=== PATIENT | male | born 1960 | race African-American/Black ===

== ENCOUNTER 2017-01-20 03:10 | Emergency (ER) | payer MEDICAID, OTHER ==
[~2017-01-20] VITALS: Ht 180.3 cm; Wt 116.6 kg
[~2017-01-20 03:10] MED LIST: /CELE20CA; AMBI10TA PO; CARDURA8 PO; COLA100C PO; COUMADIN PO; DAILY VITAMIN; DILT240C3; LABE20TAB PO; LABETALOL; LASI40TA PO; MINO10TAB PO; MINOXIDIL; MINOXIDIL PO; SIMV10TA2 PO; SIMV40TA2; SPIR50TA2 PO; TERA2CAP; VIAGRA100 PO; VICO5TAB PO; VITAMIN D PO; [UNRECOGNIZED DRUG - CODE] PO
[2017-01-20 05:06] LABS: BASO % 0.4 % (0.0-1.0); EOS # 0.2 K/mm3 (0.0-0.50); EOS % 2.5 % (0.0-3.0); LARGE UNSTAINED CELL # 0.2 K/mm3 (0.0-0.4); LARGE UNSTAINED CELL % 2.3 % (0.0-4.0); LYMPH # 2.8 K/mm3 (1.5-4.5); LYMPH % 33.9 % (24.0-44.0); MEAN CORPUSCULAR HEMOGLOBIN 30.6 pg (27.0-33.0); MEAN CORPUSCULAR HGB CONC 32.5 g/dl (32.0-36.5); MEAN CORPUSCULAR VOLUME 94.2 fl (80.0-96.0); MONO # 0.6 K/mm3 (0.0-0.8); MONO % 7.4 % (0.0-5.0); NEUTROPHILS # 4.4 K/mm3 (1.8-7.7); NEUTROPHILS % 53.4 % (36.0-66.0); PLATELET COUNT, AUTOMATED 253 k/mm3 (150-450); WHITE BLOOD COUNT 8.2 K/mm3 (4.0-10.0)
[2017-01-20 05:26] LABS: ALBUMIN 3.8 GM/DL (3.2-5.2); ALBUMIN/GLOBULIN RATIO 0.83 (1.00-1.93); ALKALINE PHOSPHATASE 111 U/L (45-117); ALT/SGPT 49 U/L (12-78); AMYLASE 119 U/L (25-115); ANION GAP 8 MEQ/L (8-16); AST/SGOT 21 U/L (15-37); BILIRUBIN,DIRECT 0.1 MG/DL (0.0-0.2); BILIRUBIN,TOTAL 0.3 MG/DL (0.2-1.0); BLOOD UREA NITROGEN 23 MG/DL (7-18); CARBON DIOXIDE LEVEL 29 MEQ/L (21-32); CHLORIDE LEVEL 105 MEQ/L (98-107); CREATININE FOR GFR 1.46 MG/DL (0.70-1.30); GLOMERULAR FILTRATION RATE > 60.0 (>56); GLUCOSE, FASTING 93 MG/DL (70-105); POTASSIUM SERUM 4.8 MEQ/L (3.5-5.1); SODIUM LEVEL 142 MEQ/L (136-145); TOTAL PROTEIN 8.4 GM/DL (6.4-8.2)
--- NOTE | 2017-01-20 05:50 | REPUSA ---
CLINICAL HISTORY: Abdominal pain. TECHNIQUE: Multiple axial, sagittal and coronal CT images were obtained through the abdomen and pelvi s without administration of oral or IV contrast material. COMMENTS: The liver is moderate hepatomegaly without mass or defect. There is no intra or extrahepatic biliary ductal dilatation. The spleen is normal. The gallbladder is within normal limits. The pancreas is of normal contour and attenuation characteristics. There is diffuse nodularity of the adrenal glands. The kidneys are normal in size, shape and configuration. No renal or ureteral calculi are identified. There is no hydroureter or hydronephrosis. There is no evidence for appendicitis. There is no bowel wall thickening. No evidence for small or la rge bowel obstruction. There is no evidence of abdominal ascites or lymphadenopathy. There is no evidence of intrinsic or extrinsic bladder mass. There is no pelvic ascites or lymphadeno ramos. Mild large bowel fecal stasis. Moderate prostatomegaly. Thickened bladder. Images of the lung bases show no evidence of pleural or parenchymal mass. There are no pleural effusi ons. The bony structures are free of lytic or blastic lesions. Multilevel degenerative changes are seen in volving the thoracolumbar spine. Scattered calcifications are seen involving the aorta and major branches compatible with atherosclero sis. IMPRESSION: Constipation. Hepatomegaly. Prostatomegaly. Thickened bladder. Thank you for your kind referral of this patient.
[2017-01-20 05:53] VITALS: BP 145/80
== END 2017-01-20 06:32 | disposition home or self-care (01) ==
LOC: M ED 03:50
DX: R10.12 Left upper quadrant pain (principal); K59.00 Constipation, unspecified; I10 Essential (primary) hypertension; E78.5 Hyperlipidemia, unspecified; Z86.73 Personal history of transient ischemic attack (TIA), and cerebral infarction without residual deficits; Z79.01 Long term (current) use of anticoagulants; Z79.899 Other long term (current) drug therapy; Z88.1 Allergy status to other antibiotic agents

== ENCOUNTER → 2017-03-15 | Outpatient (REF) | payer OTHER ==
[~2017-03-15] MED LIST changes: -COLA100C PO; +COLA100C3 PO
[2017-03-15 14:17] LABS: INR 2.34
[2017-03-15 14:26] LABS: BACTERIA, URINE NONE SEEN; HYALINE CAST, URINE NONE SEEN /lpf (0-1); MICROSCOPIC EXAM PERFORMED; RBC, URINE 0-1 /hpf (0-3); SQUAMOUS EPITHELIAL CELL URINE NONE SEEN /hpf (SMALL AMT); WBC, URINE 0-1 /hpf (0-3)
[2017-03-16 08:55] LABS: ALBUMIN 4.11 GM/DL (3.29-5.55); ALBUMIN % 51.4 % (55.8-66.1); GAMMA GLOBULIN % 21.6 % (11.1-18.8)
== END ==
LOC: M LAB REF 13:08
PROVIDERS: ATTEND Internal Medicine Nephrology
DX: R80.9 Proteinuria, unspecified (principal)

== ENCOUNTER → 2018-01-10 | Outpatient (REF) | payer MEDICARE, OTHER, SELFPAY ==
[2018-01-10 14:16] LABS: INR 2.48; PROTHROMBIN TIME 27.8 SECONDS (12.4-14.5)
[2018-01-11 14:51] LABS: TOTAL PROTEIN 7.7 GM/DL (6.4-8.2)
[2018-01-12 11:31] LABS: ALBUMIN 3.99 GM/DL (3.29-5.55); ALBUMIN % 51.8 % (55.8-66.1); ALPHA-1-GLOBULIN % 4.1 % (2.9-4.9); ALPHA-1-GLOBULINS 0.32 GM/DL (0.17-0.41); ALPHA-2-GLOBULINS 0.95 GM/DL (0.42-0.99); ALPHA-2-GLOBULINS % 12.4 % (7.1-11.8); BETA-1-GLOBULINS 0.42 GM/DL (0.28-0.60); BETA-1-GLOBULINS % 5.5 % (4.7-7.2); BETA-2-GLOBULINS 0.45 GM/DL (0.19-0.55); BETA-2-GLOBULINS % 5.9 % (3.2-6.5); GAMMA GLOBULIN % 20.3 % (11.1-18.8); GAMMA GLOBULINS 1.56 GM/DL (0.65-1.58)
[2018-01-14 00:06] LABS: ANTINUCLEAR ANTIBODIES DIRECT Negative (Negative); FREE KAPPA LIGHT CHAINS SERUM 31.1 mg/L (3.3-19.4); FREE LAMBDA LIGHT CHAINS SERUM 28.8 mg/L (5.7-26.3); KAPPA/LAMBDA RATIO SERUM 1.08 (0.26-1.65)
== END ==
LOC: M LAB REF 12:47
DX: Z79.01 Long term (current) use of anticoagulants (principal)
CPT/HCPCS: 84165; 85610

== ENCOUNTER → 2018-05-16 | Outpatient (REF) | payer MEDICARE, MEDICAID ==
[2018-05-16 13:44] LABS: INR 2.39; PROTHROMBIN TIME 26.6 SECONDS (12.1-14.4)
[2018-05-16 13:52] LABS: CREATININE,RANDOM URINE 72.2 MG/DL
== END ==
LOC: M LAB REF 13:14
DX: Z51.81 Encounter for therapeutic drug level monitoring (principal); R80.9 Proteinuria, unspecified; Z79.01 Long term (current) use of anticoagulants
CPT/HCPCS: 82570

== ENCOUNTER → 2018-11-22 | Outpatient (REF) | payer MEDICARE, MEDICAID ==
[~2018-11-22] MED LIST changes: -COLA100C3 PO; +COLA100C5 PO; -LASI40TA PO; +LASI40TA9 PO; +MINO10TA PO; -MINO10TAB PO
[2018-11-22 13:13] LABS: APPEARANCE, URINE CLEAR (CLEAR); BACTERIA, URINE AUTO NEGATIVE (NEGATIVE); BILIRUBIN, URINE AUTO NEGATIVE (NEGATIVE); BLOOD, URINE BLOOD NEGATIVE (NEGATIVE); COLOR, URINE YELLOW (YELLOW); GLUCOSE, URINE (UA) AUTO NEGATIVE (NEGATIVE); KETONE, URINE AUTO NEGATIVE (NEGATIVE); LEUKOCYTE ESTERASE, URINE AUTO NEGATIVE (NEGATIVE); NITRITE, URINE AUTO NEGATIVE (NEGATIVE); PROTEIN, URINE AUTO 2+ mg/dL (NEGATIVE); RBC, URINE AUTO 1 /HPF (0-3); SPECIFIC GRAVITY URINE AUTO 1.014 (1.002-1.035); SQUAMOUS EPITHELIAL CELL UR AU 0 /HPF (0-6); UROBILINOGEN, URINE AUTO 0.2 mg/dL (0.0-2.0); WBC, URINE AUTO 1 /HPF (0-3)
[2018-11-22 13:17] LABS: BASO # 0.1 10^3/uL (0.0-0.2); BASO % 0.6 % (0.0-1.0); EOS # 0.2 10^3/uL (0.0-0.50); EOS % 1.7 % (0.0-3.0); HEMATOCRIT 42.5 % (42.0-52.0); HEMOGLOBIN 14.1 g/dl (13.5-17.5); LYMPH # 2.2 10^3/uL (1.5-4.5); LYMPH % 25.3 % (24.0-44.0); MEAN CORPUSCULAR HEMOGLOBIN 30.9 pg (27.0-33.0); MEAN CORPUSCULAR HGB CONC 33.2 g/dl (32.0-36.5); MEAN CORPUSCULAR VOLUME 93.2 fl (80.0-96.0); MONO # 0.7 10^3/uL (0.0-0.8); MONO % 8.2 % (0.0-5.0); NEUTROPHILS # 5.5 10^3/uL (1.8-7.7); PLATELET COUNT, AUTOMATED 229 10^3/uL (150-450); RED BLOOD COUNT 4.56 10^6/uL (4.30-6.10); WHITE BLOOD COUNT 8.6 10^3/uL (4.0-10.0)
[2018-11-22 13:47] LABS: ALBUMIN 3.8 GM/DL (3.2-5.2); ALT/SGPT 48 U/L (12-78); BILIRUBIN,TOTAL 0.4 MG/DL (0.2-1.0); BLOOD UREA NITROGEN 28 MG/DL (7-18); CALCIUM LEVEL 9.3 MG/DL (8.8-10.2); CARBON DIOXIDE LEVEL 23 MEQ/L (21-32); CHLORIDE LEVEL 105 MEQ/L (98-107); CHOLESTEROL LEVEL 115 MG/DL (<200); CHOLESTEROL RISK RATIO 2.804 (<5); CPK CREATINE PHOSPHOKINASE 542 U/L (39-308); CREATININE FOR GFR 1.29 MG/DL (0.70-1.30); FREE T4 0.94 NG/DL (0.76-1.46); GLOMERULAR FILTRATION RATE > 60.0 (>49); GLUCOSE, FASTING 103 MG/DL (70-100); HDL CHOLESTEROL 41 MG/DL (>40); LDL CHOLESTEROL 64 MG/DL (<100); NON-HDL-C 74 MG/DL; POTASSIUM SERUM 5.5 MEQ/L (3.5-5.1); SODIUM LEVEL 135 MEQ/L (136-145); TOTAL 25(OH) VITAMIN D 75.1 NG/ML (30.0-100.0); TOTAL PROTEIN 7.9 GM/DL (6.4-8.2); TRIGLYCERIDES LEVEL 49 MG/DL (<150); URIC ACID 6.1 MG/DL (3.5-7.2); VITAMIN B12 LEVEL 614 PG/ML (247-911)
[2018-11-23 14:54] LABS: PSA TOTAL 2.3 ng/mL (0.0-4.0)
== END ==
LOC: M LABDRAW1 12:09
PROVIDERS: ATTEND Family Medicine
DX: I10 Essential (primary) hypertension (principal); E78.5 Hyperlipidemia, unspecified; E55.9 Vitamin D deficiency, unspecified; M10.9 Gout, unspecified

== ENCOUNTER → 2019-02-07 | Outpatient (REF) | payer MEDICARE, MEDICAID ==
[~2019-02-07] MED LIST changes: -/CELE20CA; +CELE1CAP4
== END ==
LOC: M LAB REF 12:26
PROVIDERS: ATTEND Nurse Practitioner Women's Health
DX: R97.20 Elevated prostate specific antigen [PSA] (principal)

== ENCOUNTER → 2019-02-20 | Outpatient (REF) | payer MEDICARE, MEDICAID, OTHER ==
[2019-02-20 13:49] LABS: APPEARANCE, URINE CLEAR (CLEAR); BACTERIA, URINE AUTO NEGATIVE (NEGATIVE); BILIRUBIN, URINE AUTO NEGATIVE (NEGATIVE); BLOOD, URINE BLOOD NEGATIVE (NEGATIVE); COLOR, URINE YELLOW (YELLOW); GLUCOSE, URINE (UA) AUTO NEGATIVE (NEGATIVE); KETONE, URINE AUTO NEGATIVE (NEGATIVE); LEUKOCYTE ESTERASE, URINE AUTO NEGATIVE (NEGATIVE); MUCUS, URINE SMALL (NEGATIVE); NITRITE, URINE AUTO NEGATIVE (NEGATIVE); PROTEIN, URINE AUTO 1+ mg/dL (NEGATIVE); RBC, URINE AUTO 1 /HPF (0-3); SPECIFIC GRAVITY URINE AUTO 1.013 (1.002-1.035); SQUAMOUS EPITHELIAL CELL UR AU 0 /HPF (0-6); UROBILINOGEN, URINE AUTO 0.2 mg/dL (0.0-2.0); WBC, URINE AUTO 0 /HPF (0-3)
== END ==
LOC: M SMT 13:16
PROVIDERS: ATTEND Nurse Practitioner Women's Health
DX: R31.29 Other microscopic hematuria (principal)
CPT/HCPCS: 81001; 87086; G0463

== ENCOUNTER → 2020-02-27 | Outpatient (CLI) | payer MEDICARE, MEDICAID ==
[~2020-02-27] MED LIST changes: -SIMV10TA2 PO; +SIMV10TA21 PO
--- NOTE | 2020-02-27 08:18 | REP ---
Clinical: Urinary frequency. Technique: Real time menard scale ultrasound examination using curved array transducer. Findings: The bilateral kidneys are relatively normal in reniform shape and demonstrate increased parenchymal echo texture, increased central sinus fat, and renovascular calcifications consistent with chronic medical renal disease. No hydronephrosis. Right kidney measures 12.6 x 6.2 x 6.7 cm and includes 3.3 cm mid pole cyst with mural calcification as well as 1.0 cm and 0.8 cm lower pole cysts. Left kidney measures 12.6 x 5.5 x 5.8 cm and includes 2.4 cm upper pole simple cyst, 1.2 cm mid pole cyst and 0.6 cm lower pole cyst. Bladder is normal in appearance and without wall thickening or mass lesion. Prevoid bladder measures 584 ml. Postvoid bladder measures 491 ml. Postvoid residual volume equals 84%. Enlarged prostate gland measures 6.0 x 5.3 x 4.7 cm (78 ml). Impression: 1. Chronic medical renal disease with bilateral simple and complex cysts. No hydronephrosis. 2. Bladder demonstrates abnormal postvoid residual volume which may be secondary to outlet obstruction from enlarged prostate gland. Electronically Signed by Eric Reyes MD 02/27/2020 08:10 A
--- NOTE | 2020-02-27 08:19 | REP ---
Clinical: Urinary frequency. Technique: Real time menard scale ultrasound examination using curved array transducer. Findings: Bladder is normal in appearance and without wall thickening or mass lesion. Prevoid bladder measures 584 ml. Postvoid bladder measures 491 ml. Postvoid residual volume equals 84%. Enlarged prostate gland measures 6.0 x 5.3 x 4.7 cm (78 ml). Impression: 1. Bladder demonstrates abnormal postvoid residual volume which may be secondary to outlet obstruction from enlarged prostate gland. Electronically Signed by Eric Reyes MD 02/27/2020 08:11 A
== END ==
LOC: M RAD 06:59
PROVIDERS: ATTEND Internal Medicine Nephrology
DX: R35.0 Frequency of micturition (principal); N18.3 Chronic kidney disease, stage 3 (moderate); I12.9 Hypertensive chronic kidney disease with stage 1 through stage 4 chronic kidney disease, or unspecified chronic kidney disease

== ENCOUNTER → 2020-03-28 | Outpatient (REF) | payer MEDICARE, MEDICAID ==
[~2020-03-28] MED LIST changes: +FINA5TAB2 PO; +FLOM0.4C39 PO; +MULTCAP PO; +WARF05TA PO
[2020-04-03 15:13] LABS: PSA TOTAL 2.3 ng/mL (0.0-4.0)
== END ==
LOC: M LAB REF 16:40
PROVIDERS: ATTEND Nurse Practitioner Family
DX: N40.1 Benign prostatic hyperplasia with lower urinary tract symptoms (principal)

== ENCOUNTER 2020-04-01 21:17 | Emergency (ER) | payer MEDICARE, MEDICAID ==
[~2020-04-01] VITALS: Ht 180.3 cm; Wt 120.5 kg
[~2020-04-01 21:17] MED LIST changes: -FINA5TAB2 PO; -FLOM0.4C39 PO; -MULTCAP PO; -WARF05TA PO
[2020-04-01] MEDS ORDERED: WARF05TA PO (21:35)
[2020-04-01] MEDS ORDERED: MULTCAP PO (21:35)
[2020-04-01] MEDS ORDERED: FINA5TAB2 PO (21:35)
[2020-04-01] MEDS ORDERED: FLOM0.4C39 PO (21:35)
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
[2020-04-01] MEDS: NORCO, ANEXSIA 5/325MG TABLET (HYDROcodone/ACETAMINOPHEN) PO ONE (22:49)
[2020-04-01 23:22] VITALS: BP 136/78
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
== END 2020-04-01 23:30 | disposition home or self-care (01) ==
LOC: M ED 21:17
DX: S09.90XA Unspecified injury of head, initial encounter (principal); S90.31XA Contusion of right foot, initial encounter; V28.0XXA Motorcycle driver injured in noncollision transport accident in nontraffic accident, initial encounter; Y92.096 Garden or yard of other non-institutional residence as the place of occurrence of the external cause; I11.0 Hypertensive heart disease with heart failure; I50.9 Heart failure, unspecified; E78.5 Hyperlipidemia, unspecified; M54.9 Dorsalgia, unspecified; N18.3 Chronic kidney disease, stage 3 (moderate); J44.9 Chronic obstructive pulmonary disease, unspecified; Z86.73 Personal history of transient ischemic attack (TIA), and cerebral infarction without residual deficits; F17.210 Nicotine dependence, cigarettes, uncomplicated; Z79.899 Other long term (current) drug therapy; Z79.01 Long term (current) use of anticoagulants

== ENCOUNTER 2020-06-25 10:39 | Day surgery (SDC) | payer MEDICARE, MEDICAID ==
[~2020-06-25] VITALS: Ht 180.3 cm; Wt 102.4 kg
[~2020-06-25 10:39] MED LIST changes: +FINA5TAB2 PO; +FLOM0.4C39 PO; +MULTCAP PO; +WARF05TA PO
[2020-06-25] MEDS ORDERED: NS 1,000 ML IV ONE (11:00)
[2020-06-25 11:55] VITALS: BP 107/65
--- NOTE | 2020-07-16 11:29 | ROOR ---
Patient Name: Yifan Barros Procedure Date: 06/25/2020 9:58 AM Date of : 1960 Age: 59 Room: [facility] Gender: Male Note Status: Finalized Procedure: Total Colonoscopy to Cecum Indications: High risk colon cancer surveillance: Personal history of colonic polyps, Last colonoscopy: 2014 Providers: Clay Rojas MD Referring MD: YASMIN DUPREE MD Requesting Provider: Medicines: Monitored Anesthesia Care Complications: No immediate complications. Procedure: Pre-Anesthesia Assessment: - The heart rate, respiratory rate, oxygen saturations, blood pressure, adequacy of pulmonary ventilation, and response to care were monitored throughout the procedure. The Colonoscope was introduced through the anus and advanced to the cecum, identified by appendiceal orifice and ileocecal valve. The colonoscopy was performed without difficulty. The patient tolerated the procedure well. The quality of the bowel preparation was excellent. Findings: The perianal and digital rectal examinations were normal. Non-bleeding internal hemorrhoids were found during retroflexion. The hemorrhoids were small and Grade I (internal hemorrhoids that do not prolapse). Multiple small and large-mouthed diverticula were found in the entire colon. The exam was otherwise without abnormality on direct and retroflexion views. Impression: - Non-bleeding internal hemorrhoids. - Diverticulosis in the entire examined colon. - The examination was otherwise normal on direct and retroflexion views. - No specimens collected. - The exam was otherwise normal to the cecum. Recommendation: - Patient has a contact number available for emergencies. The signs and symptoms of potential delayed complications were discussed with the patient. Return to normal activities tomorrow. Written discharge instructions were provided to the patient. - Resume previous diet. - Discharge patient to home. - Resume Coumadin (warfarin) at prior dose today. - Repeat colonoscopy in 5 years for surveillance. - Return to referring physician. - The findings and recommendations were discussed with the patient. Clay Rojas MD Clay Rojas MD 06/25/2020 11:36:53 AM Electronically signed by Clay Rojas MD Number of Addenda: 0 Note Initiated On: 06/25/2020 9:58 AM Estimated Blood Loss: Estimated blood loss: none.
== END 2020-06-25 12:30 | disposition home or self-care (01) ==
LOC: M OPP 10:39
PROVIDERS: ATTEND Internal Medicine Gastroenterology
DX: Z12.11 Encounter for screening for malignant neoplasm of colon (principal); Z86.010 Personal history of colon polyps; K64.0 First degree hemorrhoids; K57.30 Diverticulosis of large intestine without perforation or abscess without bleeding; I50.9 Heart failure, unspecified; G47.30 Sleep apnea, unspecified; F17.210 Nicotine dependence, cigarettes, uncomplicated; Z79.01 Long term (current) use of anticoagulants; Z79.899 Other long term (current) drug therapy; Z95.5 Presence of coronary angioplasty implant and graft

== ENCOUNTER → 2020-07-18 | Outpatient (REF) | payer MEDICARE, MEDICAID | LOC: M LAB REF 12:23 | PROVIDERS: ATTEND Nurse Practitioner Women's Health | DX: R97.20 Elevated prostate specific antigen [PSA] (principal) ==

== ENCOUNTER → 2020-08-27 | Outpatient (REF) | payer MEDICARE, MEDICAID, OTHER ==
[2020-08-27 11:18] LABS: BASO % 0.4 % (0.0-1.0); EOS # 0.3 10^3/uL (0.0-0.5); HEMATOCRIT 42.9 % (42.0-52.0); HEMOGLOBIN 13.9 g/dl (13.5-17.5); LYMPH # 3.3 10^3/uL (1.5-5.0); LYMPH % 35.2 % (24.0-44.0); MEAN CORPUSCULAR HGB CONC 32.4 g/dl (32.0-36.5); MEAN CORPUSCULAR VOLUME 92.7 fl (80.0-96.0); MONO # 0.9 10^3/uL (0.0-0.8); MONO % 9.4 % (0.0-5.0); NEUTROPHILS # 4.8 10^3/uL (1.5-8.5); NEUTROPHILS % 51.7 % (36.0-66.0); PLATELET COUNT, AUTOMATED 279 10^3/uL (150-450); RED BLOOD COUNT 4.63 10^6/uL (4.30-6.10); WHITE BLOOD COUNT 9.2 10^3/uL (4.0-10.0)
[2020-08-27 11:20] LABS: ALBUMIN 4.1 GM/DL (3.2-5.2); BILIRUBIN,TOTAL 0.5 MG/DL (0.2-1.0); CALCIUM LEVEL 9.6 MG/DL (8.8-10.2); CHOLESTEROL RISK RATIO 2.734 (<5); CREATININE FOR GFR 1.64 MG/DL (0.70-1.30); FREE T4 0.99 NG/DL (0.76-1.46); GLOMERULAR FILTRATION RATE 55.2 (>49); POTASSIUM SERUM 4.5 MEQ/L (3.5-5.1); THYROID STIMULATING HORMONE 1.56 uIU/ML (0.358-3.740); TOTAL 25(OH) VITAMIN D 80.1 NG/ML (30.0-100.0); TOTAL PROTEIN 8.6 GM/DL (6.4-8.2)
[2020-08-27 11:32] LABS: APPEARANCE, URINE CLEAR (CLEAR); BACTERIA, URINE AUTO NEGATIVE (NEGATIVE); BILIRUBIN, URINE AUTO NEGATIVE (NEGATIVE); BLOOD, URINE BLOOD NEGATIVE (NEGATIVE); COLOR, URINE YELLOW (YELLOW); GLUCOSE, URINE (UA) AUTO NEGATIVE (NEGATIVE); KETONE, URINE AUTO NEGATIVE (NEGATIVE); LEUKOCYTE ESTERASE, URINE AUTO NEGATIVE (NEGATIVE); NITRITE, URINE AUTO NEGATIVE (NEGATIVE); PROTEIN, URINE AUTO 2+ mg/dL (NEGATIVE); RBC, URINE AUTO 2 /HPF (0-3); SPECIFIC GRAVITY URINE AUTO 1.013 (1.002-1.035); SQUAMOUS EPITHELIAL CELL UR AU 0 /HPF (0-6); UROBILINOGEN, URINE AUTO 0.2 mg/dL (0.0-2.0); WBC, URINE AUTO 0 /HPF (0-3)
[2020-08-27 11:45] LABS: HEMOGLOBIN A1c 6.3 %
[2020-08-28 21:07] LABS: PSA TOTAL 0.7 ng/mL (0.0-4.0)
== END ==
LOC: M LAB REF 09:06
PROVIDERS: ATTEND Family Medicine
DX: I10 Essential (primary) hypertension (principal); E78.5 Hyperlipidemia, unspecified; E55.9 Vitamin D deficiency, unspecified; M10.9 Gout, unspecified; I69.351 Hemiplegia and hemiparesis following cerebral infarction affecting right dominant side; R97.20 Elevated prostate specific antigen [PSA]

== ENCOUNTER 2021-04-11 14:41 | Emergency (ER) | payer MEDICARE, MEDICAID ==
[~2021-04-11] VITALS: Ht 180.3 cm; Wt 120.5 kg
[2021-04-11] MEDS ORDERED: DILT240C47 PO (14:51)
[2021-04-11] MEDS ORDERED: ALLO10TA PO (14:51)
[2021-04-11] MEDS ORDERED: ATOR80TA59 PO (14:51)
[2021-04-11] MEDS ORDERED: WARF-22 PO (14:51)
[2021-04-11] MEDS ORDERED: LISI10TA22 PO (14:51)
[2021-04-11] MEDS ORDERED: LIDOCAINE W/EPINEPHRINE 1% 20ML VIAL SC ONE (16:30)
[2021-04-11] MEDS ORDERED: DOXY-350 PO (17:05)
[2021-04-11] MEDS ORDERED: DOXYCYCLINE HYCLATE 100MG TABLET PO ONE (17:05)
[2021-04-11 17:21] VITALS: BP 141/64
== END 2021-04-11 17:22 | disposition home or self-care (01) ==
LOC: M ED 14:41
DX: L02.811 Cutaneous abscess of head [any part, except face] (principal); Z79.01 Long term (current) use of anticoagulants; Z79.899 Other long term (current) drug therapy

== ENCOUNTER → 2021-07-29 | Outpatient (REF) | payer MEDICARE, MEDICAID, OTHER ==
[~2021-07-29] MED LIST changes: +ALLO10TA PO; +ATOR80TA59 PO; +DILT240C47 PO; +DOXY-350 PO; +LISI10TA22 PO; +WARF-22 PO
== END ==
LOC: M SMT 11:42
PROVIDERS: ATTEND Nurse Practitioner Women's Health
DX: R97.20 Elevated prostate specific antigen [PSA] (principal)

== ENCOUNTER → 2021-09-24 | Outpatient (REF) | payer MEDICARE, MEDICAID ==
[2021-09-24 14:20] LABS: INR 1.39; PROTHROMBIN TIME 17.5 SECONDS (12.7-14.5)
== END ==
LOC: M LAB REF 13:55
PROVIDERS: ATTEND Family Medicine
DX: Z79.01 Long term (current) use of anticoagulants (principal); I69.351 Hemiplegia and hemiparesis following cerebral infarction affecting right dominant side

== ENCOUNTER → 2021-09-29 | Outpatient (REF) | payer MEDICARE, MEDICAID, OTHER ==
[2021-09-29 11:45] LABS: INR 1.12; PROTHROMBIN TIME 14.8 SECONDS (12.7-14.5)
== END ==
LOC: M LAB REF 11:06
PROVIDERS: ATTEND Family Medicine
DX: Z79.01 Long term (current) use of anticoagulants (principal); I69.351 Hemiplegia and hemiparesis following cerebral infarction affecting right dominant side

== ENCOUNTER 2022-06-22 17:38 | Emergency (ER) | payer MEDICARE, OTHER ==
[~2022-06-22] VITALS: Ht 180.3 cm; Wt 104.5 kg
[~2022-06-22 17:38] MED LIST changes: +ALCOPAD25 TOP; +ALLO300T2 PO; +ATOR40TA75 PO; +BLOOKIT21 XX; +ERGO500029 PO; +FOLI1TAB11 PO; +GLUC1TES2 XX; +INSU1MIS20 SC; +INSUDET SC; +LABE200T5 PO; +LANC30MI XX; +LISI5TAB11 PO; +METF-877 PO; +MULT400T10 PO; +OMEP1CAP73 PO; +PATIENT COMMENT; +PEN1MIS23 SC; +SPIR50TA4 PO; +THIA100TA PO; +VITMTA PO; +WARF4TAB52 PO
[2022-06-22 18:19] LABS: BASO % 0.3 % (0.0-1.0); EOS # 0.1 10^3/uL (0.0-0.5); HEMATOCRIT 41.8 % (42.0-52.0); HEMOGLOBIN 13.9 g/dl (13.5-17.5); LYMPH # 2.1 10^3/uL (1.5-5.0); LYMPH % 22.6 % (24.0-44.0); MEAN CORPUSCULAR HEMOGLOBIN 29.8 pg (27.0-33.0); MEAN CORPUSCULAR HGB CONC 33.3 g/dl (32.0-36.5); MEAN CORPUSCULAR VOLUME 89.7 fl (80.0-96.0); MONO # 0.9 10^3/uL (0.0-0.8); MONO % 9.3 % (2.0-8.0); NEUTROPHILS # 6.3 10^3/uL (1.5-8.5); NEUTROPHILS % 66.6 % (36.0-66.0); PLATELET COUNT, AUTOMATED 314 10^3/uL (150-450); RED BLOOD COUNT 4.66 10^6/uL (4.30-6.10); WHITE BLOOD COUNT 9.5 10^3/uL (4.0-10.0)
[2022-06-22 18:52] LABS: ALBUMIN 3.5 GM/DL (3.2-5.2); BILIRUBIN,DIRECT 0.2 MG/DL (0.0-0.2); BILIRUBIN,TOTAL 0.5 MG/DL (0.2-1.0); CALCIUM LEVEL 9.6 MG/DL (8.8-10.2); CREATININE FOR GFR 1.53 MG/DL (0.70-1.30); GLOMERULAR FILTRATION RATE 59.6 (>49); POTASSIUM SERUM 4.6 MEQ/L (3.5-5.1); TOTAL PROTEIN 7.5 GM/DL (6.4-8.2)
[2022-06-22 20:12] LABS: WBC, URINE TNTC /hpf (0-3)
[2022-06-22 20:15] LABS: BACTERIA, URINE SMALL AMOUNT; HYALINE CAST, URINE NONE SEEN /lpf (0-1); MUCUS, URINE SMALL AMOUNT (NEGATIVE); SQUAMOUS EPITHELIAL CELL URINE NONE SEEN /hpf (SMALL AMT)
[2022-06-22] MEDS ORDERED: CEPH500C PO (20:29)
[2022-06-22 20:38] VITALS: BP 134/77
== END 2022-06-22 20:59 | disposition home or self-care (01) ==
LOC: M ED 17:38
DX: K85.90 Acute pancreatitis without necrosis or infection, unspecified (principal); N39.0 Urinary tract infection, site not specified; I13.0 Hypertensive heart and chronic kidney disease with heart failure and stage 1 through stage 4 chronic kidney disease, or unspecified chronic kidney disease; I50.9 Heart failure, unspecified; N18.30 Chronic kidney disease, stage 3 unspecified; E11.9 Type 2 diabetes mellitus without complications; E78.5 Hyperlipidemia, unspecified; R51.9 Headache, unspecified; M54.50 Low back pain, unspecified; Z86.73 Personal history of transient ischemic attack (TIA), and cerebral infarction without residual deficits; J44.9 Chronic obstructive pulmonary disease, unspecified; E66.9 Obesity, unspecified; F17.210 Nicotine dependence, cigarettes, uncomplicated; Z79.4 Long term (current) use of insulin; Z79.01 Long term (current) use of anticoagulants; Z79.899 Other long term (current) drug therapy

== ENCOUNTER → 2022-09-21 | Outpatient (CLI) | payer MEDICARE, MEDICAID ==
[~2022-09-21] MED LIST changes: +CEPH500C PO; -DOXY-350 PO; +DOXY-444 PO
== END ==
LOC: M LAB 10:58
PROVIDERS: ATTEND Nurse Practitioner Women's Health
DX: Z12.5 Encounter for screening for malignant neoplasm of prostate (principal); R97.20 Elevated prostate specific antigen [PSA]

== ENCOUNTER → 2022-09-21 | Outpatient (CLI) | payer MEDICARE, MEDICAID ==
[2022-09-21 15:44] LABS: BLOOD UREA NITROGEN 21 MG/DL (9-23); CALCIUM LEVEL 9.3 MG/DL (8.3-10.6); CARBON DIOXIDE LEVEL 26 MMOL/L (20-31); CHLORIDE LEVEL 102 MMOL/L (98-107); CREATININE FOR GFR 1.38 MG/DL (0.70-1.30); GLOMERULAR FILTRATION RATE > 60.0 (>49); GLUCOSE, FASTING 87 MG/DL (74-106); POTASSIUM SERUM 4.6 MMOL/L (3.5-5.1); SODIUM LEVEL 137 MMOL/L (136-145)
== END ==
LOC: M LAB 10:55
PROVIDERS: ATTEND Internal Medicine Endocrinology, Diabetes & Metabolism
DX: E11.65 Type 2 diabetes mellitus with hyperglycemia (principal)

== ENCOUNTER → 2022-09-21 | Outpatient (CLI) | payer MEDICARE, MEDICAID ==
[2022-09-21 13:03] LABS: BASO % 0.3 % (0.0-1.0); EOS # 0.2 10^3/uL (0.0-0.5); EOS % 2.1 % (0.0-3.0); HEMATOCRIT 43.4 % (42.0-52.0); HEMOGLOBIN 14.1 g/dl (13.5-17.5); LYMPH # 3.3 10^3/uL (1.5-5.0); LYMPH % 35.3 % (24.0-44.0); MEAN CORPUSCULAR HEMOGLOBIN 30.9 pg (27.0-33.0); MEAN CORPUSCULAR HGB CONC 32.5 g/dl (32.0-36.5); MONO # 0.8 10^3/uL (0.0-0.8); MONO % 8.1 % (2.0-8.0); PLATELET COUNT, AUTOMATED 259 10^3/uL (150-450); RED BLOOD COUNT 4.57 10^6/uL (4.30-6.10); WHITE BLOOD COUNT 9.2 10^3/uL (4.0-10.0)
[2022-09-21 13:08] LABS: APPEARANCE, URINE MANUAL CLEAR (CLEAR)
[2022-09-21 13:09] LABS: COLOR, URINE MANUAL LT YELLOW (YELLOW)
[2022-09-21 13:11] LABS: GLUCOSE, URINE (UA) MANUAL 4+(1000 MG/DL) mg/dL (NEGATIVE); PROTEIN, URINE MANUAL 2+ mg/dL (NEGATIVE); SPECIFIC GRAVITY,URINE MANUAL 1.005 (1.002-1.035)
[2022-09-21 13:12] LABS: BILIRUBIN, URINE MANUAL NEGATIVE (NEGATIVE); BLOOD URINE MANUAL NEGATIVE (NEGATIVE); KETONE, URINE MANUAL NEGATIVE (NEGATIVE); LEUKOCYTE ESTERASE, URINE MAN NEGATIVE (NEGATIVE); NITRITE, URINE MANUAL NEGATIVE (NEGATIVE); UROBILINOGEN, URINE MANUAL NORMAL (NORMAL)
[2022-09-21 13:18] LABS: RBC, URINE 0-1 /hpf (0-3)
[2022-09-21 13:19] LABS: BACTERIA, URINE SMALL AMOUNT; HYALINE CAST, URINE NONE SEEN /lpf (0-1); SQUAMOUS EPITHELIAL CELL URINE SMALL AMOUNT /hpf (SMALL AMT)
[2022-09-21 13:40] LABS: INR 1.93; PROTHROMBIN TIME 22.4 SECONDS (12.5-14.5)
[2022-09-21 19:12] LABS: ALKALINE PHOSPHATASE 94 U/L; ALT/SGPT 35 U/L (7.0-40); AST/SGOT 21 U/L (<34); BILIRUBIN,TOTAL 0.3 MG/DL (0.3-1.2); BLOOD UREA NITROGEN 20 MG/DL (9-23); CALCIUM LEVEL 9.2 MG/DL (8.3-10.6); CARBON DIOXIDE LEVEL 26 MMOL/L (20-31); CHLORIDE LEVEL 102 MMOL/L (98-107); CHOLESTEROL LEVEL 111 MG/DL (<200); CHOLESTEROL RISK RATIO 2.65 (<5); CREATININE FOR GFR 1.35 MG/DL (0.70-1.30); GLOMERULAR FILTRATION RATE > 60.0 (>49); GLUCOSE, FASTING 88 MG/DL (74-106); HDL CHOLESTEROL 41.8 MG/DL (>40); LDL CHOLESTEROL 58.4 MG/DL (<100); NON-HDL-C 69 MG/DL; POTASSIUM SERUM 4.6 MMOL/L (3.5-5.1); SODIUM LEVEL 137 MMOL/L (136-145); TOTAL PROTEIN 7.6 G/DL; TRIGLYCERIDES LEVEL 54 MG/DL (<150); URIC ACID 4.6 MG/DL (3.7-9.2); VITAMIN B12 LEVEL 478 PG/ML (211-911)
[2022-09-21 19:46] LABS: TOTAL 25(OH) VITAMIN D 81.5 NG/ML (20.0-100.0)
[2022-09-23 17:09] LABS: PSA TOTAL 0.8 ng/mL (0.0-4.0)
== END ==
LOC: M LAB 10:51
PROVIDERS: ATTEND Family Medicine
DX: I10 Essential (primary) hypertension (principal); R97.20 Elevated prostate specific antigen [PSA]; Z79.01 Long term (current) use of anticoagulants

== ENCOUNTER → 2022-10-27 | Outpatient (CLI) | payer MEDICARE, MEDICAID | LOC: M RAD 12:29 | PROVIDERS: ATTEND Surgery | DX: M79.604 Pain in right leg (principal) ==

== ENCOUNTER → 2023-02-28 | Outpatient (CLI) | payer MEDICARE, MEDICAID ==
[2023-02-28 10:18] LABS: APPEARANCE, URINE CLEAR (CLEAR); BACTERIA, URINE AUTO NEGATIVE (NEGATIVE); BILIRUBIN, URINE AUTO NEGATIVE (NEGATIVE); BLOOD, URINE BLOOD NEGATIVE (NEGATIVE); COLOR, URINE YELLOW (YELLOW); GLUCOSE, URINE (UA) AUTO NEGATIVE (NEGATIVE); KETONE, URINE AUTO NEGATIVE (NEGATIVE); LEUKOCYTE ESTERASE, URINE AUTO NEGATIVE (NEGATIVE); NITRITE, URINE AUTO NEGATIVE (NEGATIVE); PROTEIN, URINE AUTO 2+ mg/dL (NEGATIVE); RBC, URINE AUTO 2 /HPF (0-3); SPECIFIC GRAVITY URINE AUTO 1.016 (1.002-1.035); SQUAMOUS EPITHELIAL CELL UR AU 0 /HPF (0-6); UROBILINOGEN, URINE AUTO 0.2 mg/dL (0.0-2.0); WBC, URINE AUTO 1 /HPF (0-3)
[2023-02-28 10:19] LABS: BASO % 0.4 % (0.0-1.0); EOS # 0.2 10^3/uL (0.0-0.5); EOS % 2.5 % (0.0-3.0); HEMATOCRIT 44.4 % (42.0-52.0); HEMOGLOBIN 14.3 g/dl (13.5-17.5); LYMPH # 3.3 10^3/uL (1.5-5.0); LYMPH % 40.2 % (24.0-44.0); MEAN CORPUSCULAR HEMOGLOBIN 30.2 pg (27.0-33.0); MEAN CORPUSCULAR HGB CONC 32.2 g/dl (32.0-36.5); MEAN CORPUSCULAR VOLUME 93.9 fl (80.0-96.0); MONO # 0.6 10^3/uL (0.0-0.8); MONO % 7.9 % (2.0-8.0); NEUTROPHILS % 48.9 % (36.0-66.0); PLATELET COUNT, AUTOMATED 237 10^3/uL (150-450); RED BLOOD COUNT 4.73 10^6/uL (4.30-6.10); WHITE BLOOD COUNT 8.1 10^3/uL (4.0-10.0)
[2023-02-28 10:35] LABS: INR 2.45
[2023-02-28 10:52] LABS: URIC ACID 4.6 MG/DL (3.7-9.2)
[2023-02-28 10:55] LABS: CHOLESTEROL RISK RATIO 2.55 (<5); HDL CHOLESTEROL 44.7 MG/DL (>40); LDL CHOLESTEROL 58.1 MG/DL (<100); NON-HDL-C 69.3 MG/DL
[2023-02-28 10:57] LABS: TOTAL 25(OH) VITAMIN D 76.3 NG/ML (20.0-100.0)
[2023-02-28 10:58] LABS: FREE T4 0.95 NG/DL (0.89-1.76)
[2023-03-01 23:07] LABS: PSA TOTAL <0.1 ng/mL (0.0-4.0)
== END ==
LOC: M LAB 09:24
PROVIDERS: ATTEND Internal Medicine Nephrology
DX: I10 Essential (primary) hypertension (principal); E78.5 Hyperlipidemia, unspecified; E55.9 Vitamin D deficiency, unspecified; M10.9 Gout, unspecified; R31.21 Asymptomatic microscopic hematuria; Z79.01 Long term (current) use of anticoagulants

== ENCOUNTER → 2023-04-21 | Outpatient (CLI) | payer MEDICAID, MEDICARE | LOC: M RAD 10:06 | PROVIDERS: ATTEND Surgery | DX: I73.9 Peripheral vascular disease, unspecified (principal) ==

== ENCOUNTER → 2024-02-06 | Outpatient (REF) | payer MEDICARE, MEDICAID ==
[~2024-02-06] MED LIST changes: +PEN-61 SC; -PEN1MIS23 SC
== END ==
LOC: M LAB REF 17:10
PROVIDERS: ATTEND Nurse Practitioner Family
DX: N39.0 Urinary tract infection, site not specified (principal)

== ENCOUNTER → 2024-02-07 | Outpatient (CLI) | payer MEDICAID, MEDICARE | LOC: M RAD 09:04 | PROVIDERS: ATTEND Surgery | DX: I73.9 Peripheral vascular disease, unspecified (principal) ==

== ENCOUNTER → 2024-06-01 | Outpatient (CLI) | payer MEDICARE, OTHER ==
[~2024-06-01] MED LIST changes: +DOXY-440 PO; -DOXY-444 PO
[2024-06-01 08:46] LABS: BASO % 0.5 % (0.0-1.0); EOS # 0.2 10^3/uL (0.0-0.5); EOS % 2.2 % (0.0-3.0); HEMOGLOBIN 13.7 g/dl (13.5-17.5); LYMPH # 3.2 10^3/uL (1.5-5.0); LYMPH % 39.4 % (24.0-44.0); MEAN CORPUSCULAR HGB CONC 34.3 g/dl (32.0-36.5); MEAN CORPUSCULAR VOLUME 93.5 fl (80.0-96.0); MONO # 0.7 10^3/uL (0.0-0.8); MONO % 8.9 % (2.0-8.0); NEUTROPHILS % 48.8 % (36.0-66.0); PLATELET COUNT, AUTOMATED 215 10^3/uL (150-450); RED BLOOD COUNT 4.28 10^6/uL (4.30-6.10); WHITE BLOOD COUNT 8.2 10^3/uL (4.0-10.0)
[2024-06-01 08:48] LABS: APPEARANCE, URINE HAZY (CLEAR); BACTERIA, URINE AUTO NEGATIVE (NEGATIVE); BILIRUBIN, URINE AUTO NEGATIVE (NEGATIVE); BLOOD, URINE BLOOD NEGATIVE (NEGATIVE); COLOR, URINE YELLOW (YELLOW); GLUCOSE, URINE (UA) AUTO NEGATIVE (NEGATIVE); KETONE, URINE AUTO NEGATIVE (NEGATIVE); LEUKOCYTE ESTERASE, URINE AUTO 1+ (NEGATIVE); MUCUS, URINE SMALL (NEGATIVE); NITRITE, URINE AUTO NEGATIVE (NEGATIVE); PROTEIN, URINE AUTO 2+ mg/dL (NEGATIVE); RBC, URINE AUTO 1 /HPF (0-3); SQUAMOUS EPITHELIAL CELL UR AU 0 /HPF (0-6); UROBILINOGEN, URINE AUTO 0.2 mg/dL (0.0-2.0); WBC, URINE AUTO 16 /HPF (0-3)
[2024-06-01 08:56] LABS: INR 1.27; PROTHROMBIN TIME 15.5 SECONDS (12.5-14.5)
[2024-06-01 09:13] LABS: URIC ACID 5.2 MG/DL (3.7-9.2)
[2024-06-01 09:16] LABS: CHOLESTEROL RISK RATIO 2.41 (<5); HDL CHOLESTEROL 54.6 MG/DL (>40); LDL CHOLESTEROL 65.4 MG/DL (<100); NON-HDL-C 77.4 MG/DL
[2024-06-01 09:20] LABS: TOTAL 25(OH) VITAMIN D 65.1 NG/ML (20.0-100.0)
[2024-06-01 09:21] LABS: FREE T4 0.99 NG/DL (0.89-1.76)
[2024-06-04 14:26] LABS: PSA FREE 0.1 ng/mL; PSA TOTAL 0.8 ng/mL (< OR = 4.0)
== END ==
LOC: M LAB 07:39
PROVIDERS: ATTEND Family Medicine
DX: I10 Essential (primary) hypertension (principal); E78.5 Hyperlipidemia, unspecified; E55.9 Vitamin D deficiency, unspecified; M10.9 Gout, unspecified; R31.21 Asymptomatic microscopic hematuria; Z79.01 Long term (current) use of anticoagulants

== ENCOUNTER → 2024-08-15 | Outpatient (CLI) | payer MEDICARE, MEDICAID | LOC: M PLAIMG 13:41 | PROVIDERS: ATTEND Physician Assistant | DX: I77.810 Thoracic aortic ectasia (principal); I35.1 Nonrheumatic aortic (valve) insufficiency ==

== ENCOUNTER → 2024-08-28 | Outpatient (CLI) | payer MEDICAID, MEDICARE, OTHER | LOC: M RAD 12:03 | PROVIDERS: ATTEND Surgery | DX: I73.9 Peripheral vascular disease, unspecified (principal) ==

== ENCOUNTER → 2025-02-18 | Outpatient (CLI) | payer MEDICARE, MEDICAID | LOC: M RAD 10:44 | PROVIDERS: ATTEND Surgery | DX: I73.9 Peripheral vascular disease, unspecified (principal) ==

== ENCOUNTER 2025-03-04 07:58 | Emergency (ER) | payer MEDICARE, MEDICAID ==
[~2025-03-04] VITALS: Ht 180.3 cm; Wt 115.0 kg
[~2025-03-04 07:58] MED LIST changes: -FLOM0.4C39 PO; +TAMS-18 PO
[2025-03-04 10:21] LABS: BASO % 0.4 % (0.0-1.0); EOS # 0.2 10^3/uL (0.0-0.5); HEMATOCRIT 40.2 % (42.0-52.0); HEMOGLOBIN 13.7 g/dl (13.5-17.5); LYMPH # 2.6 10^3/uL (1.5-5.0); LYMPH % 27.2 % (24.0-44.0); MEAN CORPUSCULAR HEMOGLOBIN 32.2 pg (27.0-33.0); MEAN CORPUSCULAR HGB CONC 34.1 g/dl (32.0-36.5); MEAN CORPUSCULAR VOLUME 94.4 fl (80.0-96.0); MONO # 0.6 10^3/uL (0.0-0.8); MONO % 6.7 % (2.0-8.0); NEUTROPHILS % 63.3 % (36.0-66.0); PLATELET COUNT, AUTOMATED 228 10^3/uL (150-450); RED BLOOD COUNT 4.26 10^6/uL (4.30-6.10); WHITE BLOOD COUNT 9.5 10^3/uL (4.0-10.0)
[2025-03-04 10:34] LABS: INR 2.62
[2025-03-04 10:43] LABS: NITRITE, URINE MANUAL RFX NEGATIVE (NEGATIVE); PROTEIN, URINE MANUAL REFLEX 2+ mg/dL (NEGATIVE)
[2025-03-04 10:44] LABS: KETONE, URINE MANUAL REFLEX NEGATIVE (NEGATIVE); UROBILINOGEN, UA MANUAL REFLEX NORMAL (NORMAL)
[2025-03-04 10:45] LABS: MICROSCOPIC EXAM RFX UNSPUN
[2025-03-04 10:48] LABS: RBC, URINE MAN REFLEX TNTC /hpf (0-3)
[2025-03-04 10:49] LABS: HYALINE CAST, URINE RFX NONE SEEN /lpf (0-1); SQUAMOUS EPITHELIAL URINE RFX NONE SEEN /hpf (SMALL AMT)
[2025-03-04 10:50] LABS: CALCIUM LEVEL 9.6 MG/DL (8.3-10.6); CREATININE FOR GFR 1.24 MG/DL (0.70-1.30); GLOMERULAR FILTRATION RATE 64.1 (>49); POTASSIUM SERUM 5.3 MMOL/L (3.5-5.1)
[2025-03-04] MEDS ORDERED: CIPR500T39 PO (12:19)
[2025-03-04 12:32] VITALS: BP 151/89; TEMP 97.1; O2SAT 99
== END 2025-03-04 12:35 | disposition home or self-care (01) ==
LOC: M ED 07:58
DX: R31.0 Gross hematuria (principal); I50.22 Chronic systolic (congestive) heart failure; E11.9 Type 2 diabetes mellitus without complications; J44.9 Chronic obstructive pulmonary disease, unspecified; N40.0 Benign prostatic hyperplasia without lower urinary tract symptoms; N18.30 Chronic kidney disease, stage 3 unspecified; F17.210 Nicotine dependence, cigarettes, uncomplicated; Z79.01 Long term (current) use of anticoagulants; Z79.2 Long term (current) use of antibiotics; Z79.4 Long term (current) use of insulin; Z79.84 Long term (current) use of oral hypoglycemic drugs; Z79.899 Other long term (current) drug therapy

== ENCOUNTER 2025-05-29 07:43 | Day surgery (SDC) | payer MEDICARE, MEDICAID ==
[~2025-05-29] VITALS: Ht 180.3 cm; Wt 118.4 kg
[~2025-05-29 07:43] MED LIST changes: +B CO PO; +CIPR500T39 PO; +DILT240C28 PO; +TRUL0.5I
[2025-05-29] MEDS ORDERED: LIDOCAINE 2% 100 MG/5 ML SDV (FOR ANES.) As Ordered ONE (09:18)
[2025-05-29 09:32] VITALS: TEMP 99.1
[2025-05-29 09:47] VITALS: BP 173/74; O2SAT 97
== END 2025-05-29 10:06 | disposition home or self-care (01) ==
LOC: M OPP 07:43
PROVIDERS: ATTEND Internal Medicine Gastroenterology
DX: Z12.11 Encounter for screening for malignant neoplasm of colon (principal); K57.30 Diverticulosis of large intestine without perforation or abscess without bleeding; K64.0 First degree hemorrhoids; Z86.0100 Personal history of colon polyps, unspecified; Z86.73 Personal history of transient ischemic attack (TIA), and cerebral infarction without residual deficits; G47.30 Sleep apnea, unspecified; Z79.85 Long-term (current) use of injectable non-insulin antidiabetic drugs; Z79.01 Long term (current) use of anticoagulants; Z79.899 Other long term (current) drug therapy; F17.210 Nicotine dependence, cigarettes, uncomplicated

== ENCOUNTER 2025-06-21 03:10 | Inpatient (IN) | payer MEDICARE, MEDICAID ==
[2025-06-21] VITALS (9 sets, daily range): BP systolic 112–142; BP diastolic 68–86; TEMP 94.7–97.8; O2SAT 96–100
[~2025-06-21] VITALS: Ht 180.3 cm; Wt 118.4 kg
[~2025-06-21 03:10] MED LIST changes: -TRUL0.5I; +TRUL0.5I SQ
[2025-06-21 03:48] LABS: BASO # 0.0 10^3/uL (0.0-0.2); BASO % 0.3 % (0.0-1.0); EOS # 0.2 10^3/uL (0.0-0.5); EOS % 1.7 % (0.0-3.0); LYMPH # 3.7 10^3/uL (1.5-5.0); LYMPH % 30.2 % (24.0-44.0); MONO # 0.8 10^3/uL (0.0-0.8); MONO % 6.3 % (2.0-8.0); NEUTROPHILS # 7.4 10^3/uL (1.5-8.5); NEUTROPHILS % 60.9 % (36.0-66.0); PLATELET COUNT, AUTOMATED 241 10^3/uL (150-450)
[2025-06-21 04:01] LABS: INR 2.38
[2025-06-21 04:13] LABS: ALT/SGPT 43.0 U/L (7.0-40); AST/SGOT 19.0 U/L (<34); CALCIUM LEVEL 8.9 MG/DL (8.3-10.6); CARBON DIOXIDE LEVEL 23.0 MMOL/L (20-31); CHLORIDE LEVEL 111.0 MMOL/L (98-107); CREATININE FOR GFR 1.68 MG/DL (0.70-1.30); GLOMERULAR FILTRATION RATE 44.5 (>49); POTASSIUM SERUM 5.4 MMOL/L (3.5-5.1); SODIUM LEVEL 142.0 MMOL/L (136-145)
[2025-06-21] MEDS ORDERED: ISOVUE-370 76% 100 ML VIAL As Ordered ONE (05:40)
[2025-06-21 07:47] LABS: PLATELET COUNT, AUTOMATED 231 10^3/uL (150-450)
[2025-06-21] MEDS: CALCIUM GLUCONATE 1,000 MG/10 ML VIAL IV ONE (08:21)
[2025-06-21] MEDS: SODIUM BICARBONATE 8.4% INJ 50ML SYRINGE IV ONE (08:21)
[2025-06-21] MEDS: HumuLIN R (REGULAR) INSULIN (NovoLIN R) **100 U/ML** PER UNIT IV ONE (08:21)
[2025-06-21] MEDS: DEXTROSE 50% 50 ML SYRINGE IV ONE (08:21)
[2025-06-21] MEDS: NS (Normal Saline) 0.9% 1,000 ML IV ONE (08:22)
[2025-06-21] MEDS: ALBUTEROL SULFATE 2.5 MG/0.5 ML INH CONCENTRATE NEB SOLN INH ONE (10:10)
[2025-06-21] MEDS ORDERED: HOME MED LIST COMPLETE! XX SCH (10:25)
[2025-06-21] MEDS ORDERED: MAALOX 30 ML SUSP *UDC PO PRN (11:15)
[2025-06-21] MEDS ORDERED: MOM 30 ML SUSPENSION UDC PO PRN (11:15)
[2025-06-21 11:54] LABS: CALCIUM LEVEL 9.1 MG/DL (8.3-10.6); CARBON DIOXIDE LEVEL 22.0 MMOL/L (20-31); CHLORIDE LEVEL 113.0 MMOL/L (98-107); CREATININE FOR GFR 1.42 MG/DL (0.70-1.30); GLOMERULAR FILTRATION RATE 54.5 (>49); POTASSIUM SERUM 5.6 MMOL/L (3.5-5.1); SODIUM LEVEL 142.0 MMOL/L (136-145)
[2025-06-21] MEDS: ALBUTEROL SULFATE 2.5 MG/0.5 ML INH CONCENTRATE NEB SOLN NEB SCH (14:37)
[2025-06-21] MEDS: DEXTROSE 50% 50 ML SYRINGE IV STA (15:10)
[2025-06-21] MEDS: HumuLIN R (REGULAR) INSULIN (NovoLIN R) **100 U/ML** PER UNIT IV STA (15:10)
[2025-06-21] MEDS: PATIROMER SORBITEX CALCIUM 8.4GM POWDER PACKET PO ONE (15:10)
[2025-06-21 15:13] LABS: CALCIUM LEVEL 8.9 MG/DL (8.3-10.6); CARBON DIOXIDE LEVEL 23.0 MMOL/L (20-31); CHLORIDE LEVEL 112.0 MMOL/L (98-107); CREATININE FOR GFR 1.4 MG/DL (0.70-1.30); GLOMERULAR FILTRATION RATE 55.4 (>49); POTASSIUM SERUM 4.9 MMOL/L (3.5-5.1); SODIUM LEVEL 143.0 MMOL/L (136-145)
[2025-06-21] MEDS: LABETALOL 200 MG TAB PO SCH (20:51)
[2025-06-21 22:23] LABS: BASO # 0.0 10^3/uL (0.0-0.2); BASO % 0.2 % (0.0-1.0); EOS # 0.2 10^3/uL (0.0-0.5); EOS % 1.1 % (0.0-3.0); LYMPH # 5.2 10^3/uL (1.5-5.0); LYMPH % 31.0 % (24.0-44.0); MONO # 1.6 10^3/uL (0.0-0.8); MONO % 9.5 % (2.0-8.0); NEUTROPHILS # 9.6 10^3/uL (1.5-8.5); NEUTROPHILS % 57.7 % (36.0-66.0); PLATELET COUNT, AUTOMATED 261 10^3/uL (150-450)
[2025-06-21] MEDS: NS 500 ML IV ONE (22:25)
[2025-06-21 22:51] LABS: INR 2.12
[2025-06-21 23:08] LABS: ALT/SGPT 42 U/L (7.0-40); AST/SGOT 24 U/L (<34); CALCIUM LEVEL 9.5 MG/DL (8.3-10.6); CARBON DIOXIDE LEVEL 20 MMOL/L (20-31); CHLORIDE LEVEL 112 MMOL/L (98-107); CREATININE FOR GFR 1.53 MG/DL (0.70-1.30); GLOMERULAR FILTRATION RATE 49.8 (>49); MAGNESIUM LEVEL 1.5 MG/DL (1.8-2.4); POTASSIUM SERUM 5.3 MMOL/L (3.5-5.1); SODIUM LEVEL 143 MMOL/L (136-145)
[2025-06-21] MEDS: PANTOPRAZOLE 40MG VIAL IV SCH (23:08)
[2025-06-21] MEDS: OCTREOTIDE ACETATE 100 MCG/ML VIAL **IV ADMINISTRATION ONLY IV ONE (23:08)
[2025-06-21] MEDS: NS (Normal Saline) 0.9% 1,000 ML IV SCH (23:09)
[2025-06-21] MEDS: PHYTONADIONE 10MG/ML 1ML INJECTION SC ONE (23:09)
[2025-06-21] MEDS: OCTREOTIDE ACETATE 1,200 MCG in NS 238.8 ML IV SCH (23:44)
[2025-06-21] MEDS: MAG SULF 1GM/100ML (MAG RUN) 1 GM in IV 1 EA IV ONE (23:44)
[2025-06-21] MEDS: ALBUTEROL SULFATE 2.5 MG/0.5 ML INH CONCENTRATE NEB SOLN NEB ONE (23:50)
[2025-06-22] VITALS (31 sets, daily range): BP systolic 91–157; BP diastolic 54–84; TEMP 96.8–98.3; O2SAT 96–100
[2025-06-22] MEDS: HumuLIN R (REGULAR) INSULIN (NovoLIN R) **100 U/ML** PER UNIT IV STA (00:03)
[2025-06-22] MEDS: DEXTROSE 50% 50 ML SYRINGE IV STA (00:03)
[2025-06-22] MEDS: FUROSEMIDE 20 MG/2 ML VIAL IV ONE (02:07)
[2025-06-22 02:13] LABS: INR 2.14
[2025-06-22 02:30] LABS: CALCIUM LEVEL 8.5 MG/DL (8.3-10.6); CARBON DIOXIDE LEVEL 18.0 MMOL/L (20-31); CHLORIDE LEVEL 112.0 MMOL/L (98-107); CREATININE FOR GFR 1.73 MG/DL (0.70-1.30); GLOMERULAR FILTRATION RATE 43.0 (>49); POTASSIUM SERUM 5.1 MMOL/L (3.5-5.1); SODIUM LEVEL 142.0 MMOL/L (136-145)
[2025-06-22 09:02] LABS: CALCIUM LEVEL 8.3 MG/DL (8.3-10.6); CARBON DIOXIDE LEVEL 19.0 MMOL/L (20-31); CHLORIDE LEVEL 115.0 MMOL/L (98-107); CREATININE FOR GFR 1.56 MG/DL (0.70-1.30); GLOMERULAR FILTRATION RATE 48.7 (>49); MAGNESIUM LEVEL 1.6 MG/DL (1.8-2.4); POTASSIUM SERUM 6.7 MMOL/L (3.5-5.1); SODIUM LEVEL 139.0 MMOL/L (136-145)
[2025-06-22] MEDS: MULTIVITAMINS/MINERALS THERAP 1 TAB PO SCH (09:13)
[2025-06-22] MEDS: ATORVASTATIN 20 MG TAB PO SCH (09:13)
[2025-06-22] MEDS: FINASTERIDE 5 MG TAB PO SCH (09:13)
[2025-06-22] MEDS: dilTIAZem 120 MG **CD** CAPSULE PO SCH (09:15)
[2025-06-22] MEDS: TAMSULOSIN 0.4 MG CAP PO SCH (09:15)
[2025-06-22] MEDS: CALCIUM GLUCONATE 1,000 MG in DEXTROSE 5% (D5W) MINI-BAG PLU 100 ML IV ONE (10:56)
[2025-06-22] MEDS: PATIROMER SORBITEX CALCIUM 8.4GM POWDER PACKET PO ONE (11:18)
[2025-06-22 14:05] LABS: PLATELET COUNT, AUTOMATED 167 10^3/uL (150-450)
[2025-06-22 14:45] LABS: CALCIUM LEVEL 8.2 MG/DL (8.3-10.6); CARBON DIOXIDE LEVEL 17.0 MMOL/L (20-31); CHLORIDE LEVEL 115.0 MMOL/L (98-107); CREATININE FOR GFR 1.54 MG/DL (0.70-1.30); GLOMERULAR FILTRATION RATE 49.4 (>49); POTASSIUM SERUM 5.8 MMOL/L (3.5-5.1); SODIUM LEVEL 141.0 MMOL/L (136-145)
[2025-06-22 19:40] LABS: PLATELET COUNT, AUTOMATED 175 10^3/uL (150-450)
[2025-06-22 19:58] LABS: CALCIUM LEVEL 8.0 MG/DL (8.3-10.6); CARBON DIOXIDE LEVEL 18.0 MMOL/L (20-31); CHLORIDE LEVEL 115.0 MMOL/L (98-107); CREATININE FOR GFR 1.49 MG/DL (0.70-1.30); GLOMERULAR FILTRATION RATE 51.4 (>49); POTASSIUM SERUM 5.6 MMOL/L (3.5-5.1); SODIUM LEVEL 143.0 MMOL/L (136-145)
[2025-06-23] VITALS (21 sets, daily range): BP systolic 126–156; BP diastolic 72–80; TEMP 97.4–98.6; O2SAT 91–100
[2025-06-23 02:16] LABS: PLATELET COUNT, AUTOMATED 169 10^3/uL (150-450)
[2025-06-23 02:58] LABS: CALCIUM LEVEL 7.9 MG/DL (8.3-10.6); CARBON DIOXIDE LEVEL 19.0 MMOL/L (20-31); CHLORIDE LEVEL 112.0 MMOL/L (98-107); CREATININE FOR GFR 1.46 MG/DL (0.70-1.30); GLOMERULAR FILTRATION RATE 52.7 (>49); POTASSIUM SERUM 4.8 MMOL/L (3.5-5.1); SODIUM LEVEL 140.0 MMOL/L (136-145)
[2025-06-23 08:28] LABS: PLATELET COUNT, AUTOMATED 144 10^3/uL (150-450)
[2025-06-23 08:40] LABS: INR 1.12
[2025-06-23 08:56] LABS: CALCIUM LEVEL 7.7 MG/DL (8.3-10.6); CARBON DIOXIDE LEVEL 19.0 MMOL/L (20-31); CHLORIDE LEVEL 115.0 MMOL/L (98-107); CREATININE FOR GFR 1.41 MG/DL (0.70-1.30); GLOMERULAR FILTRATION RATE 55.0 (>49); POTASSIUM SERUM 5.0 MMOL/L (3.5-5.1); SODIUM LEVEL 142.0 MMOL/L (136-145)
[2025-06-23 14:25] LABS: PLATELET COUNT, AUTOMATED 174 10^3/uL (150-450)
[2025-06-23] MEDS ORDERED: WARFARIN SOD 1MG TAB PO SCH (16:35)
[2025-06-23] MEDS: MAG SULF 1GM/100ML (MAG RUN) 1 GM in IV 1 EA IV SCH (17:30)
[2025-06-23 20:43] LABS: PLATELET COUNT, AUTOMATED 166 10^3/uL (150-450)
[2025-06-24] VITALS (39 sets, daily range): BP systolic 103–150; BP diastolic 62–78; TEMP 96.7–98.5; O2SAT 92–100
[2025-06-24 01:49] LABS: PLATELET COUNT, AUTOMATED 166 10^3/uL (150-450)
[2025-06-24 05:40] LABS: INR 1.07
[2025-06-24] MEDS ORDERED: MORPHINE 2 MG/ML 1 ML VIAL IV PRN (06:05)
[2025-06-24 06:15] LABS: ALT/SGPT 22.0 U/L (7.0-40); AST/SGOT 12.0 U/L (<34); CALCIUM LEVEL 7.1 MG/DL (8.3-10.6); CARBON DIOXIDE LEVEL 18.0 MMOL/L (20-31); CHLORIDE LEVEL 114.0 MMOL/L (98-107); CREATININE FOR GFR 1.43 MG/DL (0.70-1.30); GLOMERULAR FILTRATION RATE 54.0 (>49); MAGNESIUM LEVEL 1.6 MG/DL (1.8-2.4); POTASSIUM SERUM 5.3 MMOL/L (3.5-5.1); SODIUM LEVEL 143.0 MMOL/L (136-145)
[2025-06-24 06:59] LABS: PLATELET COUNT, AUTOMATED 165 10^3/uL (150-450)
[2025-06-24] MEDS: PATIROMER SORBITEX CALCIUM 8.4GM POWDER PACKET PO ONE ×2 (07:01→09:00)
[2025-06-24 09:47] LABS: PLATELET COUNT, AUTOMATED 166 10^3/uL (150-450)
[2025-06-24] MEDS: MAG SULF 1GM/100ML (MAG RUN) 1 GM in IV 1 EA IV ONE (10:05)
[2025-06-24] MEDS: MAGNESIUM CITRATE 300 ML BTL PO SCH (11:45)
[2025-06-24 17:39] LABS: PLATELET COUNT, AUTOMATED 158 10^3/uL (150-450)
[2025-06-24 20:34] LABS: PLATELET COUNT, AUTOMATED 146 10^3/uL (150-450)
[2025-06-25] VITALS (31 sets, daily range): BP systolic 125–168; BP diastolic 66–90; TEMP 96.9–98.1; O2SAT 95–100
[2025-06-25 02:15] LABS: PLATELET COUNT, AUTOMATED 144 10^3/uL (150-450)
[2025-06-25 03:05] LABS: CALCIUM LEVEL 7.2 MG/DL (8.3-10.6); CARBON DIOXIDE LEVEL 20.0 MMOL/L (20-31); CHLORIDE LEVEL 115.0 MMOL/L (98-107); CREATININE FOR GFR 1.46 MG/DL (0.70-1.30); GLOMERULAR FILTRATION RATE 52.7 (>49); POTASSIUM SERUM 5.0 MMOL/L (3.5-5.1); SODIUM LEVEL 144.0 MMOL/L (136-145)
[2025-06-25 03:39] LABS: MAGNESIUM LEVEL 2.0 MG/DL (1.8-2.4)
[2025-06-25] MEDS ORDERED: LIDOCAINE 2% 100 MG/5 ML SDV (FOR ANES.) As Ordered ONE (07:10)
[2025-06-25] MEDS ORDERED: SIMETHICONE 40MG/0.6ML DROPS 30ML As Ordered ONE (08:35)
[2025-06-25 10:54] LABS: PLATELET COUNT, AUTOMATED 144 10^3/uL (150-450)
[2025-06-25 14:45] LABS: PLATELET COUNT, AUTOMATED 136 10^3/uL (150-450)
[2025-06-25 20:03] LABS: PLATELET COUNT, AUTOMATED 143 10^3/uL (150-450)
[2025-06-26] VITALS (11 sets, daily range): BP systolic 117–158; BP diastolic 77–86; TEMP 97.2–98.3; O2SAT 95–100
[2025-06-26] MEDS: ACETAMINOPHEN 325 MG TAB PO PRN (01:31)
[2025-06-26 02:23] LABS: PLATELET COUNT, AUTOMATED 139 10^3/uL (150-450)
[2025-06-26 06:21] LABS: CALCIUM LEVEL 7.4 MG/DL (8.3-10.6); CARBON DIOXIDE LEVEL 20.0 MMOL/L (20-31); CHLORIDE LEVEL 114.0 MMOL/L (98-107); CREATININE FOR GFR 1.32 MG/DL (0.70-1.30); GLOMERULAR FILTRATION RATE 59.5 (>49); MAGNESIUM LEVEL 1.7 MG/DL (1.8-2.4); POTASSIUM SERUM 4.5 MMOL/L (3.5-5.1); SODIUM LEVEL 143.0 MMOL/L (136-145)
[2025-06-26 12:11] LABS: PLATELET COUNT, AUTOMATED 156 10^3/uL (150-450)
[2025-06-26 17:58] LABS: PLATELET COUNT, AUTOMATED 170 10^3/uL (150-450)
[2025-06-27] VITALS (12 sets, daily range): BP systolic 131–157; BP diastolic 76–86; TEMP 97.2–97.5; O2SAT 95–99
[2025-06-27 00:25] LABS: PLATELET COUNT, AUTOMATED 157 10^3/uL (150-450)
[2025-06-27 06:25] LABS: PLATELET COUNT, AUTOMATED 180 10^3/uL (150-450)
[2025-06-27 06:55] LABS: CALCIUM LEVEL 7.8 MG/DL (8.3-10.6); CARBON DIOXIDE LEVEL 22.0 MMOL/L (20-31); CHLORIDE LEVEL 113.0 MMOL/L (98-107); CREATININE FOR GFR 1.26 MG/DL (0.70-1.30); GLOMERULAR FILTRATION RATE 62.9 (>49); MAGNESIUM LEVEL 1.6 MG/DL (1.8-2.4); POTASSIUM SERUM 4.4 MMOL/L (3.5-5.1); SODIUM LEVEL 143.0 MMOL/L (136-145)
[2025-06-27] MEDS: MAG SULF 1GM/100ML (MAG RUN) 1 GM in IV 1 EA IV ONE (09:34)
[2025-06-27] MEDS ORDERED: PROT1TAB2 PO (10:51)
[2025-06-27 11:34] LABS: PLATELET COUNT, AUTOMATED 152 10^3/uL (150-450)
== END 2025-06-27 14:38 | disposition home or self-care (01) | DRG 378 ==
LOC: M ED 03:10 → M ED INP 03:11 → M MS4PR 16:05 → M ICU 22:45 → M ED INP 22:46 → M ICU 23:07 → M PCU 06-22 23:34 → OBSVTOIN 06-23 08:28
PROVIDERS: ADMIT Student in an Organized Health Care Education/Training Program; ATTEND Family Medicine
PROC: 30233N1 Transfusion of Nonautologous Red Blood Cells into Peripheral Vein, Percutaneous Approach (ICD-10-PCS; 2025-06-21)
PROC: 30233K1 Transfusion of Nonautologous Frozen Plasma into Peripheral Vein, Percutaneous Approach (ICD-10-PCS; 2025-06-21)
PROC: 3E1H88Z Irrigation of Lower GI using Irrigating Substance, Via Natural or Artificial Opening Endoscopic (ICD-10-PCS; 2025-06-25)
PROC: 0DJD8ZZ Inspection of Lower Intestinal Tract, Via Natural or Artificial Opening Endoscopic (ICD-10-PCS; principal; 2025-06-25 07:30)
DX: K57.31 Diverticulosis of large intestine without perforation or abscess with bleeding (principal); I13.0 Hypertensive heart and chronic kidney disease with heart failure and stage 1 through stage 4 chronic kidney disease, or unspecified chronic kidney disease; I69.351 Hemiplegia and hemiparesis following cerebral infarction affecting right dominant side; D62 Acute posthemorrhagic anemia; I50.32 Chronic diastolic (congestive) heart failure; E78.5 Hyperlipidemia, unspecified; G47.33 Obstructive sleep apnea (adult) (pediatric); N18.32 Chronic kidney disease, stage 3b; M19.90 Unspecified osteoarthritis, unspecified site; E11.22 Type 2 diabetes mellitus with diabetic chronic kidney disease; E87.5 Hyperkalemia; M10.9 Gout, unspecified; N40.0 Benign prostatic hyperplasia without lower urinary tract symptoms; Z79.01 Long term (current) use of anticoagulants; Z79.899 Other long term (current) drug therapy

== ENCOUNTER → 2025-07-22 | Outpatient (CLI) | payer MEDICARE, MEDICAID ==
[~2025-07-22] MED LIST changes: +PROT1TAB2 PO
[2025-07-22 15:29] LABS: APPEARANCE, URINE HAZY (CLEAR); BACTERIA, URINE AUTO NEGATIVE (NEGATIVE); BILIRUBIN, URINE AUTO NEGATIVE (NEGATIVE); BLOOD, URINE BLOOD NEGATIVE (NEGATIVE); GLUCOSE, URINE (UA) AUTO NEGATIVE (NEGATIVE); KETONE, URINE AUTO NEGATIVE (NEGATIVE); LEUKOCYTE ESTERASE, URINE AUTO NEGATIVE (NEGATIVE); NITRITE, URINE AUTO NEGATIVE (NEGATIVE); PROTEIN, URINE AUTO NEGATIVE (NEGATIVE); RBC, URINE AUTO 1 /HPF (0-3); SPECIFIC GRAVITY URINE AUTO 1.011 (1.002-1.035); SQUAMOUS EPITHELIAL CELL UR AU 0 /HPF (0-6); UROBILINOGEN, URINE AUTO 0.2 mg/dL (0.0-2.0); WBC, URINE AUTO 0 /HPF (0-3)
[2025-07-22 15:42] LABS: BASO # 0.1 10^3/uL (0.0-0.2); BASO % 0.5 % (0.0-1.0); EOS # 0.1 10^3/uL (0.0-0.5); EOS % 1.2 % (0.0-3.0); LYMPH # 3.0 10^3/uL (1.5-5.0); LYMPH % 30.0 % (24.0-44.0); MONO # 0.9 10^3/uL (0.0-0.8); MONO % 9.1 % (2.0-8.0); NEUTROPHILS # 5.8 10^3/uL (1.5-8.5); NEUTROPHILS % 58.9 % (36.0-66.0); PLATELET COUNT, AUTOMATED 315 10^3/uL (150-450)
[2025-07-22 15:55] LABS: INR 0.87
[2025-07-22 16:01] LABS: CREATININE, URINE 117.9 MG/DL; MALB URINE SIEMENS 59.0 MG/L; MAU/CREAT RATIO 50.0 MCG/MG (0.0-30.0)
[2025-07-22 16:03] LABS: CHOLESTEROL LEVEL 125.0 MG/DL (<200); CHOLESTEROL RISK RATIO 2.52 (<5); CPK CREATINE PHOSPHOKINASE 270.0 U/L (46-171); LDL CHOLESTEROL 63.5 MG/DL (<100); NON-HDL-C 75.5 MG/DL; TRIGLYCERIDES LEVEL 60.0 MG/DL (<150)
[2025-07-22 16:05] LABS: TOTAL 25(OH) VITAMIN D 29.9 NG/ML (20.0-100.0); VITAMIN B12 LEVEL 653.0 PG/ML (211-911)
[2025-07-22 16:06] LABS: FREE T4 1.24 NG/DL (0.89-1.76)
[2025-07-22 16:08] LABS: ESTIMATED AVERAGE GLUCOSE 108.0 MG/DL (60-110)
== END ==
LOC: M LAB 13:42
PROVIDERS: ATTEND Family Medicine
DX: I10 Essential (primary) hypertension (principal); E78.5 Hyperlipidemia, unspecified; E55.9 Vitamin D deficiency, unspecified; M10.9 Gout, unspecified; R31.21 Asymptomatic microscopic hematuria; Z79.01 Long term (current) use of anticoagulants; E11.42 Type 2 diabetes mellitus with diabetic polyneuropathy

== ENCOUNTER → 2025-08-16 | Outpatient (REF) | payer MEDICARE, MEDICAID | LOC: M LAB REF 16:42 | PROVIDERS: ATTEND Plastic Surgery Surgery of the Hand | DX: L72.0 Epidermal cyst (principal) ==